=== PATIENT | male | born 1955 | race Caucasian/White ===

== ENCOUNTER 2022-03-02 04:19 | Emergency (ER) | payer OTHER, SELFPAY ==
[2022-03-02] VITALS (26 sets, daily range): BP systolic 121–159; BP diastolic 69–86; PULSE 64–79; RESP 12–23; TEMP 36.3–36.9; O2SAT 94–100
--- NOTE | ~2022-03-02 | XR_ITS ---
EXAMINATION: [id number] DATE: 03/02/2022 06:11 INDICATION: Pain over the left fifth and sixth ribs. TECHNIQUE: A frontal inspiratory view of the chest and 3 views of the left ribs were obtained. COMPARISON: Chest radiograph dated 03/31/2019 FINDINGS: No rib fractures identified. No airspace opacities, pulmonary edema, pleural effusion or pneumothorax . Heart size is normal. Median sternotomy wires and mediastinal surgical clips are seen, likely from prior coronary artery bypass grafting. IMPRESSION: 1. No rib fracture or acute cardiopulmonary disease. Reviewed, dictated and finalized at location A. K SETTER GYPSUM
--- NOTE | 2022-03-02 05:11 | ED.GENADULT ---
HPI - General Adult General Chief complaint: Unspecified <Dre Jackson MD - Last Filed: 03/03/22 05:11> Stated complaint: cracked ribs? <Dre Jackson MD - Last Filed: 03/03/22 05:11> Time Seen by Provider: 03/02/22 04:49 <Dre Jackson MD - Last Filed: 03/03/22 05:11> History of Present Illness HPI narrative: This is a 66-year-old male presenting ED with left chest wall pain. Patient says that he fell onto a bench approximately 3 weeks ago with some bruising underneath his left pack. The bruise has resolved however he rolled over tonight at 2:00 a.m. and felt a popping sensation and is now having a sharp pain at the bottom of his sternum that radiates across his left chest. It is 2/10 in intensity. pain only occurs with movement. It is exquisitely tender to palpation. is not associated with vomiting, diaphoresis, exertion. Patient does not believe this is cardiac in nature. <Dre Jackson MD - Last Filed: 03/03/22 05:11> Related Data Home medications: Home Medications Medication Instructions Recorded Confirmed aspirin 325 mg tablet 325 mg PO DAILY 03/22/19 10/22/21 atorvastatin 80 mg tablet 80 mg PO DAILY 03/22/19 10/22/21 ezetimibe 10 mg tablet (Zetia) 10 mg PO DAILY 03/22/19 10/22/21 cetirizine 10 mg tablet (Zyrtec) 10 mg PO DAILY PRN 10/22/21 10/22/21 metoprolol succinate 50 mg 50 mg PO DAILY 10/22/21 10/22/21 tablet,extended release 24 hr wmjqrevaeamx-vll-iahoy acid-vit 1 tablet PO DAILY 10/22/21 10/22/21 K-lycop 400 mcg-20 mcg-370 mcg tablet (One-A-Day Men's 50 Plus) <Dre Jackson MD - Last Filed: 03/03/22 05:11> Allergies/adverse reactions: Allergies Allergy/AdvReac Type Severity Reaction Status Date / Time meperidine Allergy Unknown Unknown Verified 03/02/22 04:28 Penicillins Allergy Unknown Unknown Verified 03/02/22 04:28 <Dre Jackson MD - Last Filed: 03/03/22 05:11> Review of Systems Review of Systems: CONSTITUTIONAL: Denies night sweats. EYES: No eye pain ENT: Denies rhinorrhea CARDIOVASCULAR: Denies palpitations RESPIRATORY: Denies hemoptysis GASTROINTESTINAL: Denies hematemesis GENITOURINARY: Denies hematuria. SKIN: Denies rash MUSCULOSKELETAL: Denies myalgia. NEUROLOGIC: Denies weakness. PSYCHIATRIC: Denies delusions <Dre Jackson MD - Last Filed: 03/03/22 05:11> [facility] Past Medical History Medical History: Medical History Borderline hyperlipidemia CAD (coronary artery disease) Type 2 diabetes mellitus <Dre Jackson MD - Last Filed: 03/03/22 05:11> Surgical History Surgical History: Surgical History H/O cataract removal with insertion of prosthetic lens H/O heart bypass surgery History of tonsillectomy and adenoidectomy [place] teeth removed <Dre Jackson MD - Last Filed: 03/03/22 05:11> Family History Family History: Family History Father Family history of coronary artery disease <Dre Jackson MD - Last Filed: 03/03/22 05:11> Social History Social History: Social History Smoking status: Never smoker Second hand tobacco smoke exposure: No Alcohol intake: current Alcohol use details: rarely. Substance use: never Substance use type: does not use Gender identity (if verbalized by the patient): Male <Dre Jackson MD - Last Filed: 03/03/22 05:11> Exam Narrative: APPEARANCE: No apparent distress. Head: atraumatic. EYES: EOMI, NOSE: Atraumatic NECK: Trachea midline RESPIRATORY: No increased rate of breathing , clear lungs CARDIOVASCULAR: RRR, no peripheral edema ABDOMINAL: Non-distended , soft, nontender no guarding rebound MUSCULOSKELETAl: patient has well-healed sternotomy scars over his chest. Patient has reproducible tenderness to pa
--- NOTE | 2022-03-02 05:24 | ECG_ITS ---
Measurements Intervals [place] Rate: 69 P: 60 PA: 183 QRS: 11 QRSD: 110 T: 90 QT: 373 QTc: 401 Interpretive Statements SINUS RHYTHM NONSPECIFIC ST & T-WAVE ABNORMALITY- HIGH LATERAL LEADS BASELINE ARTIFACT- I, III, AVL BORDERLINE ECG NO PREVIOUS ECG AVAILABLE FOR COMPARISON Electronically Signed On 03-02-2022 6:26:55 BINDERY MACHINE SETTER/SET UP OPERATOR by Dustin Hernandez D.O.
[2022-03-02 06:17] LABS: Basophils Absolute Auto 0.1 K/mm3 (0.0-0.1); Basophils Percent Auto 0.8 % (0.2-1.2); Eosinophils Absolute Auto 0.3 K/mm3 (0-0.3); Eosinophils Percent Auto 4.5 % (0-4.4); Hematocrit 49.4 % (42.0-52.0); Hemoglobin 15.6 g/dL (14.0-18.0); Immature Granulocyte Absolute 0.03 K/mm3 (0.00-0.031); Immature Granulocyte Percent A 0.4 % (0-0.5); Lymphocytes Absolute Auto 1.95 K/mm3 (0.9-3.2); Mean Corpuscular HGB Conc 31.6 g/dl (32-36); Mean Corpuscular Hemoglobin 30.1 pg (26-34); Mean Corpuscular Volume 95.4 fl (80-100); Mean Platelet Volume 11.2 fl (7.4-10.4); Monocytes Absolute Auto 0.7 K/mm3 (0.1-0.6); Monocytes Percent Auto 8.9 % (2.6-8.5); Neutrophils Absolute Auto 4.4 K/mm3 (1.3-6.7); Neutrophils Percent Auto 59.4 % (45.5-73.1); Platelet Count Result 184 k/mm3 (150-375); Red Blood Count 5.18 M/mm3 (4.6-6.20); White Blood Count 7.5 K/mm3 (4.5-10.0)
[2022-03-02 06:26] LABS: Magnesium 2.1 mg/dL (1.6-2.3)
[2022-03-02 06:27] LABS: Anion Gap 16 mmol/L (8-16); Blood Urea Nitrogen 15 mg/dL (9-20); Calcium 9.8 mg/dL (8.4-10.2); Carbon Dioxide 29 mmol/L (22-30); Chloride 99 mmol/L (98-107); Estimated Glomerular Filt Rate > 60; Glucose 131 mg/dL (65-110); Potassium 3.8 mmol/L (3.4-5.0); Sodium 144 mmol/L (137-145)
[2022-03-02 06:39] LABS: Troponin I < 0.012 ng/mL (0.000-0.034)
[2022-03-02 10:08] LABS: Troponin I < 0.012 ng/mL (0.000-0.034)
== END 2022-03-02 10:36 | disposition home or self-care (01) ==
PROVIDERS: Emergency Provider Emergency Medicine; PCP Family Medicine
DX: R07.89 Other chest pain (principal); I25.10 Atherosclerotic heart disease of native coronary artery without angina pectoris; E11.9 Type 2 diabetes mellitus without complications; Z98.49 Cataract extraction status, unspecified eye; Z96.1 Presence of intraocular lens; Z95.1 Presence of aortocoronary bypass graft; Z79.82 Long term (current) use of aspirin; Z79.84 Long term (current) use of oral hypoglycemic drugs
CPT/HCPCS: 36415; 71101; 80048; 83735; 84484; 85025; 85610; 85730; 93005; 99284

== ENCOUNTER 2022-10-07 00:01 | Observation (INO) | payer OTHER, SELFPAY ==
[2022-10-06 23:37] VITALS: BP 146/102; PULSE 77; RESP 16; TEMP 36.4; O2SAT 100
[2022-10-06 23:55] LABS: Basophils Absolute Auto 0.1 K/mm3 (0.0-0.1); Basophils Percent Auto 0.6 % (0.2-1.2); Eosinophils Absolute Auto 0.4 K/mm3 (0-0.3); Eosinophils Percent Auto 3.4 % (0-4.4); Hemoglobin 14.6 g/dL (14.0-18.0); Immature Granulocyte Absolute 0.04 K/mm3 (0.00-0.031); Immature Granulocyte Percent A 0.4 % (0-0.5); Lymphocytes Absolute Auto 2.93 K/mm3 (0.9-3.2); Lymphocytes Percent Auto 28.2 % (18.3-44.2); Mean Corpuscular HGB Conc 31.7 g/dl (32-36); Mean Corpuscular Hemoglobin 29.7 pg (26-34); Mean Corpuscular Volume 93.5 fl (80-100); Mean Platelet Volume 10.9 fl (7.4-10.4); Monocytes Absolute Auto 0.9 K/mm3 (0.1-0.6); Monocytes Percent Auto 8.5 % (2.6-8.5); Neutrophils Absolute Auto 6.1 K/mm3 (1.3-6.7); Neutrophils Percent Auto 58.9 % (45.5-73.1); Platelet Count Result 171 k/mm3 (150-375); Red Blood Count 4.92 M/mm3 (4.6-6.20); Red Cell Distribution Width 14.3 % (11.5-14.5); White Blood Count 10.4 K/mm3 (4.5-10.0)
--- NOTE | ~2022-10-07 | US_ITS ---
EXAMINATION: US right upper quadrant DATE: 10/07/2022 INDICATION: Vomiting. TECHNIQUE: Multiple grayscale and Doppler ultrasound images of the abdomen were obtained. COMPARISON: CT abdomen and pelvis 10/07/2022 FINDINGS: The visualized portions of the head and body of the pancreas are normal. There is diffuse h epatic steatosis. The gallbladder is distended. The CT demonstrates a gallstone. Gallbladder wall thi ckening is noted. There is no sonographic [place] sign. The common duct is normal and measures 6 mm. IMPRESSION: 1. Acute cholecystitis. Reviewed, dictated and finalized at location A. IMPRESSION: 1. Acute cholecystitis.
--- NOTE | ~2022-10-07 | MR_ITS ---
EXAMINATION: MR MRCP wo/w con/w 3D wo ind DATE: 10/07/22 INDICATION: Abdominal pain. Nausea. TECHNIQUE: Magnetic resonance imaging (MRI) of the abdomen was performed without intravenous contrast . The patient terminated the exam after very few sequences before contrast was administered. Maximum intensity projection 3-D reconstructions of the volumetric data were created by the technologist. COMPARISON: CT abdomen and pelvis 10/07/2022 FINDINGS: ABDOMEN MRI: The gallbladder is distended. Gallbladder wall thickening is noted. There is trace perih epatic ascites. ABDOMEN MRCP: The common duct measures 7 mm. There are small filling defects in the distal common dana e duct. IMPRESSION: 1. Choledocholithiasis. 2. Gallbladder distention and gallbladder wall thickening suspicious for acute cholecystitis. Reviewed, dictated and finalized at location A.
--- NOTE | ~2022-10-07 | CT_ITS ---
EXAMINATION: CT abdomen pelvis w con INDICATION: Generalized abdominal pain TECHNIQUE: Computed tomographic images of the abdomen and pelvis were obtained after the administrati on of 100 cc of Omnipaque 350 intravenous contrast. The dose-length product (DLP) was 569 mGy-cm. Aut omated exposure control and iterative reconstruction technique were employed. COMPARISON: 08/06/2014 FINDINGS: The lung bases are clear. The heart size is normal. There is an 8 mm cyst in the liver dome . There is mild intrahepatic and extrahepatic biliary dilatation continuing to the level of a stone i n the common bile duct or cystic duct (Mirizzi syndrome). There is mild gallbladder distention. The s pleen, pancreas, and adrenal glands are normal. Cysts of the kidneys measure up to 9 mm on the left. There is calcified atherosclerosis of the aorta and many of the other arteries. No pathologically enl arged abdominal or pelvic lymph nodes are identified. No free intraperitoneal gas or evidence of raciel l obstruction. There is mild lumbar spondylosis. IMPRESSION: 1. 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 Reviewed, dictated and finalized at location A.
[2022-10-07 00:05] LABS: Alanine Aminotransferase 44 U/L (6-50); Albumin Level 4.6 g/dL (3.5-5.1); Alkaline Phosphatase 63 U/L (38-126); Anion Gap 8 mmol/L (8-16); Aspartate Amino Transferase 31 U/L (17-59); Bilirubin,Total 0.4 mg/dL (0.2-1.3); Blood Urea Nitrogen 21 mg/dL (9-20); Carbon Dioxide 29 mmol/L (22-30); Chloride 102 mmol/L (98-107); Estimated CRCL calculation 69 ml/min; Estimated Glomerular Filt Rate > 60; Glucose 167 mg/dL (65-110); Lipase 248 U/L (23-300); Sodium 139 mmol/L (137-145)
--- NOTE | 2022-10-07 11:50 | HP_ITS ---
CHIEF COMPLAINT Epigastric pain and vomiting. HISTORY OF PRESENT ILLNESS DICTATION ENDS HERE MTDD
[2022-10-07 12:11] LABS: Glucose Point of Care 96 mg/dl (65-105)
[2022-10-07 16:52] LABS: Glucose Point of Care 171 mg/dl (65-105)
--- NOTE | 2022-10-07 22:19 | PC.NURSE ---
Paper documentation exists on this patient due to [employer] downtime on 10/07/22 from 0030to [2200] .
--- NOTE | 2022-10-07 22:21 | PC.NURSE ---
Paper documentation exists on this patient due to [employer] downtime on 10/07/22 from 0030 to [2200] .
[2022-10-07 22:55] VITALS: BP 124/65; PULSE 73; RESP 16; TEMP 36.4; O2SAT 94
--- NOTE | 2022-10-08 01:29 | CONS_ITS ---
DATE OF CONSULTATION: 10/07/2022 HISTORY OF PRESENT ILLNESS: This is a 66-year-old white male patient, I am asked to see because of abnormal CT scan. The patient in usual state of health until last evening. He developed some bloating along with nausea, vomiting. [place] as though he may be constipated. He states pain was rather intense across the upper abdomen bilaterally radiating to the back. For this reason, he went to the emergency room. In the emergency room, a CT scan was performed, which suggested mild intrahepatic dilatation. The possibility of a stone in either the cystic or common bile duct is described. The patient states pain is now relieved. He is passing flatus without difficulty. He feels much improved. He never did have a bowel movement, however. Laboratory testing in emergency room reveals liver function tests to be normal. CBC is also unremarkable. PHYSICAL EXAMINATION: GENERAL: The patient is alert, afebrile, anicteric. HEENT: Exam unremarkable. LUNGS: Clear to auscultation and to percussion. HEART: Without murmur or extra sounds. ABDOMEN: Bowel sounds are present. Soft, nontender, with no hepatosplenomegaly. LABORATORY DATA: Laboratory testing reveals CBC and liver tests to be normal. IMPRESSION: 1. Abnormal CT scan, raising the question of gallstones contributing to his problem. Plan for MRCP. Also, an ultrasound of the gallbladder will be obtained. In the morning liver tests and CBC will be repeated. We will follow him during this course of observation. We will give him a laxative because of concerns over constipation as well. Thank you very much. LATOYA AHUMADA M.D. COMPUTER DRAFTER COMPUTER DRAFTER D I MT: [place]
[2022-10-08 05:00] VITALS: BMI 25.4
[2022-10-08] MEDS: SODIUM CHLORIDE 0.9% IV 1,000 ML 150 ML IV CONT (05:13)
[2022-10-08 05:23] LABS: Hematocrit 43.3 % (42.0-52.0); Hemoglobin 13.8 g/dL (14.0-18.0); Mean Corpuscular HGB Conc 31.9 g/dl (32-36); Mean Corpuscular Hemoglobin 29.6 pg (26-34); Mean Corpuscular Volume 92.7 fl (80-100); Mean Platelet Volume 10.6 fl (7.4-10.4); Platelet Count Result 152 k/mm3 (150-375); Red Blood Count 4.67 M/mm3 (4.6-6.20); Red Cell Distribution Width 14.5 % (11.5-14.5); White Blood Count 7.9 K/mm3 (4.5-10.0)
[2022-10-08 05:33] LABS: Alanine Aminotransferase 40 U/L (6-50); Albumin Level 3.9 g/dL (3.5-5.1); Alkaline Phosphatase 62 U/L (38-126); Anion Gap 6 mmol/L (8-16); Aspartate Amino Transferase 29 U/L (17-59); Bilirubin,Total 0.7 mg/dL (0.2-1.3); Blood Urea Nitrogen 13 mg/dL (9-20); Calcium 8.7 mg/dL (8.4-10.2); Carbon Dioxide 30 mmol/L (22-30); Chloride 104 mmol/L (98-107); Estimated Glomerular Filt Rate > 60; Glucose 127 mg/dL (65-110); Potassium 3.8 mmol/L (3.4-5.0); Sodium 140 mmol/L (137-145)
[2022-10-08 06:00] VITALS: BP 122/70; PULSE 72; RESP 16; TEMP 36.1; O2SAT 92
[2022-10-08 08:30] VITALS: BP 123/67; PULSE 69; O2SAT 93
[2022-10-08 08:31] VITALS: PULSE 69
[2022-10-08] MEDS: METOPROLOL SUCCINATE EXT REL 50 MG TABCR PO (08:31)
[2022-10-08] MEDS: ATORVASTATIN 40 MG TABLET 80 MG PO (08:31)
[2022-10-08] MEDS: EZETIMIBE 10 MG TABLET PO (08:31)
--- NOTE | 2022-10-08 09:13 | WPDGIPROGNO ---
Progress Note: A&P Assessment and Plan (1) Cholelithiasis: Code(s): K80.20 - Calculus of gallbladder without cholecystitis without obstruction Status: Acute Assessment and Plan: Patient with gallstones identified by ultrasound. CT scan imaging suggest he may have had this impacted in the cystic duct on presentation. LFTs of remain normal. Patient now is asymptomatic. Plan for surgery consultation to arrange cholecystectomy. Further recommendations per surgical service. Cholangiogram should be performed time of cholecystectomy to ensure clearance of the common bile duct despite having normal LFTs. Subjective Date/time seen: 10/08/22 09:13 Interval history: patient alert comfortable this morning. Tolerating liquid diet. Denies any abdominal pain. Passing flatus but no bowel movement yet. Patient admitted with upper abdominal pain that abated after emesis. Initial CT scan suggested possible gallstone. LFTs of remain normal patient unable to tolerate MRCP because of confinement. Ultrasound does confirm gallstone in the gallbladder with apparent cholecystitis. Patient currently feels fine and with no no pain. Review of Systems Review of Systems: Review of systems noncontributory. Exam Narrative: Physical exam reveals patient to be alert. Vital signs stable. HEENT exam is unremarkable. Patient is anicteric. Lungs are clear to auscultation and percussion. Heart is without murmur or extra sounds. Abdomen bowel sounds are present soft nontender with no organomegaly. Objective Data Vital Signs Vital Signs: Vital Signs - 24 hr 10/07/22 22:55 10/07/22 20:00 10/08/22 06:00 Temperature 97.5 F L 97.0 F L Pulse Rate 73 72 Respiratory Rate 16 16 Blood Pressure 124/65 122/70 Pulse Oximetry 94 92 Oxygen Delivery Room Air 10/08/22 08:30 10/08/22 08:31 Temperature Pulse Rate 69 69 Respiratory Rate Blood Pressure 123/67 Pulse Oximetry 93 Oxygen Delivery Intake/Output Intake/Output: Intake & Output 10/05/22 10/06/22 10/07/22 10/08/22 23:59 23:59 23:59 23:59 Intake Total 960 Balance 960 Meds/Results Medications: Active Medications Generic Name Dose Route Start Last Admin Trade Name Freq PRN Reason Stop Dose Admin Aspirin 81 mg 10/08/22 08:00 Aspirin 81 Mg Chewable Tablet PO DAILY@0800 [facility] Atorvastatin Calcium 80 mg 10/08/22 09:00 10/08/22 08:31 Atorvastatin 40 Mg Tablet PO 80 mg DAILY RAJESH Administration Dextrose 12.5 gm 10/08/22 02:32 Dextrose 50% 25 Gm/50 Ml Syringe IV PUSH PRN PRN Hypoglycemia Protocol Ezetimibe 10 mg 10/08/22 09:00 10/08/22 08:31 Ezetimibe 10 Mg Tablet PO 10 mg QAM RAJESH Administration Glimepiride 8 mg 10/08/22 08:00 Glimepiride 2 Mg Tablet PO DAILY@0800 RAJESH Glucagon 1 mg 10/08/22 02:32 Glucagon For Inj 1 Mg Vial IM PRN PRN Hypoglycemia Protocol Glucose 15 gm 10/08/22 02:32 Glucose Oral Gel 15 Gm Of Glucse In 37.5 Gm Tube PO PRN PRN Hypoglycemia Protocol Sodium Chloride 1,000 mls @ 75 mls/hr 10/08/22 02:30 10/08/22 08:31 Normal Saline Iv IV CONT 75 mls/hr .[id number] RAJESH Infusion Dextrose 1,000 mls @ 100 mls/hr 10/08/22 02:32 Dextrose 5% 1,000 Ml IVPB PRN PRN Hypoglycemia Protocol Levofloxacin/Dextrose 750 mg in 150 mls @ 100 mls/hr 10/08/22 09:00 Levaquin 750 Mg/D5w 150 Ml IVPB Q24H RAJESH Metronidazole 500 mg in 100 mls @ 100 mls/hr 10/08/22 11:00 Flagyl 500 Mg/Iso Soln 100 Ml IVPB Q8H RAJESH Metformin HCl 1,000 mg 10/08/22 08:00 Metformin Hcl 500 Mg Tablet PO BIDWM RAJESH Metoprolol Succinate 50 mg 10/08/22 09:00 10/08/22 08:31 Metoprolol Succinate Ext Rel 50 Mg Tabcr PO 50 mg QAM RAJESH Administration Morphine Sulfate 4 mg 10/08/22 02:30 Morphine Sulfate (*Crx) 4 Mg/Ml Inj IV PUSH Q4H PRN Pain Rated 7-10 Multivitamin
[2022-10-08] MEDS: levoFLOXacin 750 MG/D5W 150 ML 750 MG/150 ML BAG 100 MG IVPB (10:14)
--- NOTE | 2022-10-08 10:49 | PM.IMPN ---
Progress Note: A&P Assessment and Plan (1) Acute calculous cholecystitis: Code(s): K80.00 - Calculus of gallbladder with acute cholecystitis without obstruction Status: Acute Assessment and Plan: Patient presented with c/o epigastric pain, N/V. CT abd/pelvis concerning for intrahepatic and extrahepatic biliary dilation, gallbladder distention and possible common bile duct or cystic duct stone. GI consulted MRCP and RUQ US show acute cholecystitis. MRCP with small filling defects to distal common bile duct. Levaquin 750 mg IV Q24 hours and Metronidazole 500 mg IV Q8 hours initiated. General surgery consulted for surgical eval Continue analgesics and antiemetics as needed. LFTs within normal limits. WBC 7.9 (2) Type 2 diabetes mellitus with cardiac complication: Code(s): E11.59 - Type 2 diabetes mellitus with other circulatory complications Status: Chronic Assessment and Plan: Chronic. Patient takes metformin and glimepiride at home. Hold oral diabetes medications while inpatient. Accu-check AC/HS with low dose aspart sliding scale and hypoglycemia protocol. Check A1c. (3) Hypertension: Code(s): I10 - Essential (primary) hypertension Status: Chronic Assessment and Plan: Chronic. Monitor vitals per routine. Continue metoprolol at home dose. (4) CAD (coronary artery disease): Code(s): I25.10 - Atherosclerotic heart disease of [place] coronary artery without angina pectoris Status: Chronic Assessment and Plan: s/p 3 vessel CABG 3-4 years ago. Patient also reports h/o 2-3 cardiac stents. Hold aspirin for possible surgery Continue atorvastatin, Zetia and metoprolol at home doses. Plan CODE STATUS: FULL CODE Discharge disposition: patient is from home and independent Time Spent With Patient Time with patient: 15 - 25 minutes Subjective Date/time seen: 10/08/22 10:49 Interval history: He denies abd pain, nausea or emesis currently. He had a large BM today. No fevers overnight. He reports his IV is burning and itching at this time. Review of Systems Review of Systems: All systems reviewed & are unremarkable except as noted in HPI and below Exam Narrative: General: No acute distress. Well-developed adult male sitting up in bed. Non-toxic appearing. Neuro/Psych: Awake, alert and oriented x4. Clear speech. No focal sensory or motor deficits. Neutral mood. Flat affect. Cooperative. Skin: fair, warm, dry and intact. Mild xerosis left hand/wrist at IV site. Fair turgor. HEENT: Normocephalic. Sclera is non-icteric. Pupils equal and round. Oral mucosa pink and moist. Neck: No JVD. Heart: S1 and S2 regular rate and rhythm. No murmurs, gallops, or rubs auscultated. Chest: Respirations even and unlabored. Lung sounds are clear to auscultation without wheezes, rhonchi, or rales. Abdomen: Soft, mildly distended and non-tender to palpation. Bowel sounds present in all 4 quadrants. No guarding. Extremities: No edema, erythema or calf tenderness. Grossly normal ROM. radial and dorsalis pedis pulses equal and palpable bilaterally. Objective Data Vital Signs Vital Signs: Vital Signs - 24 hr 10/07/22 22:55 10/07/22 20:00 10/08/22 06:00 Temperature 97.5 F L 97.0 F L Pulse Rate 73 72 Respiratory Rate 16 16 Blood Pressure 124/65 122/70 Pulse Oximetry 94 92 Oxygen Delivery Room Air 10/08/22 08:30 10/08/22 08:31 10/08/22 08:30 Temperature Pulse Rate 69 69 Respiratory Rate Blood Pressure 123/67 Pulse Oximetry 93 Oxygen Delivery Room Air Intake/Output Intake/Output: Intake & Output 10/05/22 10/06/22 10/07/22 10/08/22 23:59 23:59 23:59 23:59 Intake Total 960 Balance 960 Meds/Results Medications: Active Medications Generic Name Dose Route Start Last Admin Trade Name Freq PRN Reason Stop Dose Admin Aspirin 81 mg 10/08/22 08:00 Aspirin 81 Mg Chewable Tablet
[2022-10-08 12:19] LABS: Glucose Point of Care 167 mg/dl (65-105)
--- NOTE | 2022-10-08 12:23 | PM.DS ---
DS: Admitting Diagnosis Discharge Date 10/08/2022 Admitting Diagnosis Cholelithiasis Possible choledocholithiasis Epigastric pain Type 2 diabetes mellitus, chronic CAD, chronic DS: Discharge Diagnosis Discharge Diagnosis (1) Acute calculous cholecystitis: Code(s): K80.00 - Calculus of gallbladder with acute cholecystitis without obstruction Status: Acute Assessment and Plan: Patient presented with c/o epigastric pain, N/V. CT abd/pelvis concerning for intrahepatic and extrahepatic biliary dilation, gallbladder distention and possible common bile duct or cystic duct stone. GI consulted MRCP and RUQ US show acute cholecystitis. MRCP with small filling defects to distal common bile duct. Levaquin 750 mg IV Q24 hours and Metronidazole 500 mg IV Q8 hours initiated 10/08. Discussed with General Surgery and transitioned to ciprofloxacin 500 mg PO BID until Friday 10/13. General surgery consulted for surgical eval - plan for outpatient Lap cholecystectomy with cholangiogram on Wednesday10/13/22 Continue analgesics and antiemetics as needed. LFTs within normal limits. WBC 7.9 (2) Type 2 diabetes mellitus with cardiac complication: Code(s): E11.59 - Type 2 diabetes mellitus with other circulatory complications Status: Chronic Assessment and Plan: Chronic. Patient takes metformin and glimepiride at home. Hold oral diabetes medications while inpatient. Accu-check AC/HS with low dose aspart sliding scale and hypoglycemia protocol. Stable (3) Hypertension: Code(s): I10 - Essential (primary) hypertension Status: Chronic Assessment and Plan: Chronic. Monitored vitals per routine. Continued metoprolol at home dose. Stable. (4) CAD (coronary artery disease): Code(s): I25.10 - Atherosclerotic heart disease of [place] coronary artery without angina pectoris Status: Chronic Assessment and Plan: s/p 3 vessel CABG 3-4 years ago. Patient also reports h/o 2-3 cardiac stents. Held aspirin for possible surgery. Instructed to continuing holding until after surgery Wednesday. Continued atorvastatin, Zetia and metoprolol at home doses. DS: Summary Hospital Course Reason for hospitalization: Epigastric pain & vomiting Hospital Course: Patient is a 66 yo male, with non-insulin dependent type 2 diabetes mellitus and CAD s/p CABG 3 vessels 3-4 years ago, who presented to the ED for evaluation of epigastric pain that was sharp and radiated across his right abdomen and associated with nausea and vomiting x4. Symptoms started at approximately 1900 the day prior to admission and following dinner of ribs and baked beans. He reported concerns for constipation since Wednesday, as well, along with bloating that started that evening. In the ED, his vitals were stable. Lab work showed normal LFTs and mildly elevated WBC 11.5. CT abd/pelvis was concerning for intrahepatic and extrahepatic biliary dilation, gallbladder distention and possible common bile duct or cystic duct stone. GI was consulted. The patient was treated with IV morphine, IV zofran and IV NS 1 liter in the ED. He was admitted for further management and evaluation. MRCP and RUQ abd US were obtained and suggested acute cholecystitis with gallstones and small filling defect to distal common bile duct. Levaquin 750 mg IV Q24 hours and Metronidazole 500 mg IV Q8 hours were initiated 10/08/22. General Surgery was consulted for evaluation of lap cholecystectomy with cholangiogram with imaging findings. ERCP was discussed with the patient, however, he had no further abd pain, nausea, emesis, leukocytosis, elevated LFTs or jaundice. He reported feeling comfortable with discharge and outpatient Laparoscopic Cholecystectomy with cholangiogram on Wednesday10/13/22. Risks of worsening disease and s/s to report were discussed with the patient who verbalized understanding. He reported understanding that ERCP may still b
--- NOTE | 2022-10-08 12:46 | PM.CNGS ---
Assessment and Plan Assessment and plan (1) Acute calculous cholecystitis: Code(s): K80.00 - Calculus of gallbladder with acute cholecystitis without obstruction Status: Acute Assessment and Plan: Patient's pain has been gone for nearly 48 hours. He is tolerating full liquid diet without difficulty. His abdominal exam is negative. I discussed with the patient and his that I would definitely recommend cholecystectomy. I described that procedure in detail including the risks benefits and usual length of recovery. I also discussed that we would be doing an intraoperative cholangiogram as it is unclear from the imaging whether there may be small stones in the bile duct. All questions were answered. We will go ahead and discharge the patient today and he can follow up again as an outpatient Wednesday to proceed with laparoscopic cholecystectomy at 7:30 a.m. in the morning. (2) Abnormal findings on imaging of biliary tract: Code(s): R93.2 - Abnormal findings on diagnostic imaging of liver and biliary tract Status: Acute Assessment and Plan: Small stones in the bile duct on MRCP but normal liver enzymes, nondilated bile ducts on ultrasound. Conflicting imaging and chemistries. Will get intraoperative cholangiogram at time of laparoscopic cholecystectomy. (3) CAD (coronary artery disease): Qualifiers: Coronary Disease-Associated Artery/Lesion type: [place] artery [place] vs. transplanted heart: [place] heart Associated angina: without angina Qualified Code(s): I25.10 - Atherosclerotic heart disease of [place] coronary artery without angina pectoris Code(s): I25.10 - Atherosclerotic heart disease of [place] coronary artery without angina pectoris Status: Chronic Assessment and Plan: Patient has had coronary artery bypass grafting and does not experience chest pain or coronary symptoms at this point. (4) Type 2 diabetes mellitus with cardiac complication: Code(s): E11.59 - Type 2 diabetes mellitus with other circulatory complications Status: Chronic (5) Primary hypertension: Code(s): I10 - Essential (primary) hypertension Status: Chronic History of Present Illness Consult details Consult date: 10/08/22 Reason for consult: abdominal pain Requesting physician: Demetrius Peña MD Narrative: Patient is a 66-year-old diabetic man who has a history of coronary artery bypass grafting a few years ago. On Wednesday, 2 days ago, he developed severe epigastric abdominal pain that radiated around to the back under each rib margin. He also had quite a few episodes of vomiting. He had eaten a corn beef sandwich around 2:00 p.m. and then had barbecued ribs for supper. His pain started about 7:00 p.m.. He came to the emergency room where he was noted to have epigastric tenderness. He reports that he vomited in the triage area and soon after that his pain greatly improved. CT scan of the abdomen and pelvis showed evidence of cholecystitis and also some intrahepatic and extrahepatic biliary ductal dilatation thought to be either due to bile duct stones or Mirizzi syndrome. His liver enzymes were normal. He had an ultrasound and an MRCP today. The ultrasound showed gallstones but no biliary ductal dilatation. His MRCP showed small stones in the bile duct and gallbladder wall thickening suggestive of cholecystitis. Liver enzymes have been normal again today. With the somewhat conflicting biliary imaging, Dr. Peña saw the patient and would prefer to hold off on ERCP at this time since the imaging is conflicting and liver enzymes are normal. We were asked to see the patient in consultation. If cholecystectomy is to be performed, patient will need intraoperative cholangiogram as well. At present, patient is eating lunch and has not had any abdominal pain since when he was in the emergency room. He has not had any further episodes of vomiting and would like to be dischar
[2022-10-08 12:58] LABS: Basophils Absolute Auto 0.1 K/mm3 (0.0-0.1); Basophils Percent Auto 0.4 % (0.2-1.2); Eosinophils Absolute Auto 0.1 K/mm3 (0-0.3); Eosinophils Percent Auto 1.2 % (0-4.4); Hematocrit 44.8 % (42.0-52.0); Hemoglobin 14.7 g/dL (14.0-18.0); Immature Granulocyte Absolute 0.03 K/mm3 (0.00-0.031); Immature Granulocyte Percent A 0.3 % (0-0.5); Lymphocytes Absolute Auto 1.62 K/mm3 (0.9-3.2); Lymphocytes Percent Auto 13.7 % (18.3-44.2); Mean Corpuscular HGB Conc 32.8 g/dl (32-36); Mean Corpuscular Volume 91.4 fl (80-100); Monocytes Absolute Auto 0.7 K/mm3 (0.1-0.6); Monocytes Percent Auto 5.7 % (2.6-8.5); Neutrophils Absolute Auto 9.3 K/mm3 (1.3-6.7); Neutrophils Percent Auto 78.7 % (45.5-73.1); Platelet Count Result 161 k/mm3 (150-375); Red Cell Distribution Width 14.1 % (11.5-14.5); White Blood Count 11.8 K/mm3 (4.5-10.0)
--- NOTE | 2022-10-08 17:49 | ER_ITS ---
This report was moved to the correct visit on 10/14/2022. Original report was signed by Brice Chávez MD on 10/09/22 0707 and co-signed by Camelia Buckley PA-C on 10/09/22 0909. 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 Pt states he ate [place] for lunch then developed abdominal pain a afew hours later. States he then ate ribs for dinner which cauesd the abdominal pain to worsen. He develop nausea with multiple episodes of emesis, then came to the ED. His last BM was 3 days ago, described as explosive diarrhea. States he normally has 1-2 BM per day. Denies obstipation, hematemesis, coffee ground emesis, fever, body aches, chills, urinary complaints, CP or SOB. No history of abdominal surgeries. Related Data Home Medications Medication Instructions Recorded Confirmed atorvastatin 80 mg tablet 80 mg PO DAILY 03/22/19 10/07/22 ezetimibe 10 mg tablet (Zetia) 10 mg PO DAILY 03/22/19 10/07/22 metoprolol succinate 50 mg 50 mg PO DAILY 10/22/21 10/07/22 tablet,extended release 24 hr fxlaevmvoenw-joq-ytaya acid-vit 1 tablet PO DAILY 10/22/21 10/07/22 K-lycop 400 mcg-20 mcg-370 mcg tablet (One-A-Day Men's 50 Plus (with vitamin K)) aspirin 81 mg tablet 81 mg PO DAILY 10/07/22 10/07/22 metformin 500 mg tablet,extended 1,000 mg PO BID 10/07/22 10/07/22 release 24 hr Allergies Allergy/AdvReac Type Severity Reaction Status Date / Time meperidine Allergy Unknown Unknown Verified 05/13/22 14:36 Penicillins Allergy Unknown Unknown Verified 05/13/22 14:36 Review of Systems Review of Systems: CONSTITUTIONAL: Denies fever, chills EYES: Denies visual changes, redness, or discharge. ENT: Denies rhinorrhea, congestion, sore throat, or otalgia. CARDIOVASCULAR: Denies chest pain, palpitations, or edema. RESPIRATORY: Denies cough or dyspnea. GASTROINTESTINAL: See HPI GENITOURINARY: Denies dysuria or hematuria. SKIN: Denies rash or itching. MUSCULOSKELETAL: See HPI NEUROLOGIC: Denies headache, numbness, dizziness, or weakness. PSYCHIATRIC: Denies anxiety or depression. [facility] Past Medical History Medical History Borderline hyperlipidemia CAD (coronary artery disease) Type 2 diabetes mellitus Surgical History Surgical History H/O cataract removal with insertion of prosthetic lens H/O heart bypass surgery History of tonsillectomy and adenoidectomy [place] teeth removed Family History Family History Father Family history of coronary artery disease Social History Social History Smoking status: Never smoker Second hand tobacco smoke exposure: No Alcohol intake: current Alcohol use details: rarely. Substance use: never Substance use type: does not use Lack of Transportation: No Lack of Food: Never True Current Housing: I Have Housing Concerned About Future Housing: Decline to Answer Difficulty Paying Gas/Electric Bills: Decline to Answer Difficulty Paying for Meds: Decline to Answer Currently Unemployed: Decline to Answer Education: Decline to Answer Difficulty w/ Childcare or Family Care: Decline to Answer Living arrangements: with family Gender identity (if verba
[2022-10-09 01:18] LABS: Appearance Urine Clear (Clear); Bilirubin Urine Negative (Negative); Blood Urine Negative (Negative); Color Urine Yellow (Yellow); Glucose Urine UA 3+ mg/dL (Negative); Ketones Urine 1+ mg/dL (Negative); Leukocyte Esterase Ur Negative LEU/UL (Negative); Nitrate Urine Negative (Negative); Protein Urine Negative (Negative); Urobilinogen Urine 0.2 mg/dL (<2.0); pH Urine 6.5 (5.0-9.0)
[2022-10-09 01:21] LABS: Add Urine Microscopic? NO
[2022-10-09 12:22] LABS: Anion Gap 8 mmol/L (8-16); Aspartate Amino Transferase 31 U/L (17-59); Bilirubin,Total 0.4 mg/dL (0.2-1.3); Blood Urea Nitrogen 20 mg/dL (9-20); Calcium 9.1 mg/dL (8.4-10.2); Carbon Dioxide 28 mmol/L (22-30); Chloride 103 mmol/L (98-107); Estimated CRCL calculation 85 ml/min; Estimated Glomerular Filt Rate > 60; Glucose 152 mg/dL (65-110); Potassium 3.8 mmol/L (3.4-5.0); Sodium 139 mmol/L (137-145)
[2022-10-09 12:23] LABS: Alanine Aminotransferase 46 U/L (6-50); Albumin Level 4.6 g/dL (3.5-5.1); Alkaline Phosphatase 67 U/L (38-126); Lipase 167 U/L (23-300); Total Protein 7.6 g/dL (6.3-8.2)
[2022-10-12 10:58] LABS: Glucose Point of Care 111 mg/dl (65-105)
== END 2022-10-08 13:35 | disposition home or self-care (01) ==
LOC: ANHED 19:36 → ANH2MED 10-08 10:18
PROVIDERS: Emergency Medicine; Admitting Provider Student in an Organized Health Care Education/Training Program; Emergency Provider Physician Assistant; PCP Family Medicine; Visit Provider Internal Medicine Gastroenterology
DX: K80.00 Calculus of gallbladder with acute cholecystitis without obstruction (principal); E11.59 Type 2 diabetes mellitus with other circulatory complications; I10 Essential (primary) hypertension; I25.10 Atherosclerotic heart disease of native coronary artery without angina pectoris; Z95.5 Presence of coronary angioplasty implant and graft; Z20.822 Contact with and (suspected) exposure to COVID-19; I48.0 Paroxysmal atrial fibrillation; R93.2 Abnormal findings on diagnostic imaging of liver and biliary tract; D72.829 Elevated white blood cell count, unspecified; F10.90 Alcohol use, unspecified, uncomplicated; Z79.1 Long term (current) use of non-steroidal anti-inflammatories (NSAID); Z79.82 Long term (current) use of aspirin; Z79.84 Long term (current) use of oral hypoglycemic drugs; Z79.899 Other long term (current) drug therapy; Z82.49 Family history of ischemic heart disease and other diseases of the circulatory system
CPT/HCPCS: 36415; 74177; 74183; 76376; 76705; 80053; 81003; 82948; 83690; 85025; 85027; 96361; 96374; 96375; 99285; A9270; G0378; J1200; J1956; J2270; J2405; J7030; Q9967

== ENCOUNTER 2022-10-12 11:17 | Outpatient (CLI) | payer OTHER, SELFPAY ==
[2022-10-12 12:11] LABS: Alanine Aminotransferase 35 U/L (6-50); Albumin Level 4.2 g/dL (3.5-5.1); Alkaline Phosphatase 78 U/L (38-126); Amylase 58 U/L (30-110); Aspartate Amino Transferase 30 U/L (17-59); Bilirubin,Total 1.2 mg/dL (0.2-1.3); Lipase 86 U/L (23-300)
== END 2022-10-12 11:18 | disposition home or self-care (01) ==
LOC: ANHSURGERY 11:22
PROVIDERS: PCP Family Medicine; Visit Provider Surgery
DX: K80.00 Calculus of gallbladder with acute cholecystitis without obstruction (principal); Z01.818 Encounter for other preprocedural examination
CPT/HCPCS: 36415; 80076; 82150; 83690; 86850; 86900; 86901

== ENCOUNTER 2022-10-13 00:48 | Day surgery (SDC) | payer OTHER, SELFPAY ==
--- NOTE | 2022-10-09 13:23 | PC.NURSE ---
Report to the Outpatient Waiting Room, entrance under the green pavilion located off [facility], at time _0830 on date _10/13/22 . Planned Procedure Time: __1030 . Time changes happen often and if your time is changed the preop area will call you the afternoon before. - You and your visitor will be asked to self-screen and do not enter if you have any COVID symptoms. - A mask is optional within the hospital at this time. Patients may have clear liquids (water, carbonated beverages, clear teas, apple juice) until 3 hours prior to surgery with a maximum of 20 ounces. - No food from midnight until time of surgery - Infants may have breast milk until 4 hours before surgery, infant formula 6 hours prior to surgery. - Children will be allowed to drink immediately following surgery. If applicable, please bring a bottle or sippy cup to assist with drinking. Juice, water, soda, and popsicles are readily available. For infants on formula, please bring formula the day of surgery. Pacifiers are allowed. Take the following medications with a SIP of water the morning of surgery: __METOPROLOL,CIPRO DO NOT STOP ANY OF YOUR OTHER PRESCRIPTION MEDICATIONS PRIOR TO SURGERY ?EXCEPT THE FOLLOWING Medications to discontinue per physician ___PT STATES HOLD ASPIRIN PER DR NDIAYE .LAST DOSE_10/06/22. ALL VITAMINS 3 DAYS PRE OP.LAST DOSE 10/09/22 HIBICLENS SHOWER MORNING OF SURGERY Please no make-up, nail jordanian, hairspray, perfume, deodorant, or body powder the day of surgery. No jewelry (including any body piercings) or valuables the day of surgery, leave them at home. Please take a shower or bath the night before, or the morning of, surgery with an antibacterial soap. Wear comfortable, loose fitting clothing. Children are encouraged to wear pajamas. - Jewelry must be removed prior to entering the operating room. Rings and piercings that are not removed may be cut off. - The hospital will not accept responsibility for valuables. - Please leave all valuables, including medications, at home the day of surgery. If you are going home after surgery, a licensed route sales delivery driver must drive you home. - NO public transportation without another adult if you receive anesthesia. - We recommend that an adult stay with you for 24 hours following discharge. - We also recommend that you do not drive, make important decision, drink alcoholic beverages, or take any drugs that were not prescribed by your health care provider for at least 24 hours after your discharge time. For Pediatric surgeries, we recommend two adults accompany the child home. Follow any additional instructions given to you from your surgeon. If you or anyone in your household have experienced Covid symptoms in the past week, please notify your surgeon or the nurse liaison at the phone number below for possible testing. Telephone instructions given to ___PT'S REANNA and asked if any additional questions and then verbalized understanding. Patient advised to call surgeon office or pre surgery nurse liaison [phone] if any additional questions.
[2022-10-09 13:33] VITALS: BMI 25.8
--- NOTE | 2022-10-12 13:02 | WPDANESEPPF ---
Anes - Initial Pre Proc Eval Procedure: Operation Date: 10/13/22 10:30 Proposed Procedures p Laparoscopic Cholecystectomy with Intra Operative Cholangiogram - Andrew Linder MD Date/Time: 10/12/22 13:02 Surgeon: Andrew Linder MD Pre Op Diagnosis: cholecystitis Patient Data Age: 66 Gender: M Height: 1.8 m Weight: 83.99 kg Allergies Allergy/AdvReac Type Severity Reaction Status Date / Time meperidine Allergy Unknown Unknown Verified 10/13/22 08:31 Penicillins Allergy Unknown Unknown Verified 10/13/22 08:31 Home Medications Medication Instructions Recorded Confirmed Type atorvastatin 80 mg tablet 80 mg PO DAILY 03/22/19 10/09/22 History ezetimibe 10 mg tablet (Zetia) 10 mg PO DAILY 03/22/19 10/09/22 History metoprolol succinate 50 mg 50 mg PO DAILY 10/22/21 10/09/22 History tablet,extended release 24 hr llmtjfqurqmx-rtj-cysnn acid-vit 1 tablet PO DAILY 10/22/21 10/09/22 History K-lycop 400 mcg-20 mcg-370 mcg tablet (One-A-Day Men's 50 Plus (with vitamin K)) aspirin 81 mg tablet 81 mg PO DAILY 10/07/22 10/09/22 History metformin 500 mg tablet,extended 1,000 mg PO BID 10/07/22 10/09/22 History release 24 hr ciprofloxacin HCl 500 mg tablet 500 mg PO Q12H #8 tabs 10/08/22 10/09/22 Rx empagliflozin 25 mg tablet 25 mg PO DAILY 10/09/22 10/09/22 History (Jardiance) glimepiride 4 mg tablet 8 mg PO QAM 10/09/22 10/09/22 History Patient hx anesthesia problems: none Family hx anesthesia problems: none Results Review: All pre-operative results and documents have been reviewed as part of the pre-operative evaluation. [facility] Past Medical History Medical History (Updated 10/12/22 @ 13:03 by José Lewis DO) Atrial fibrillation Borderline hyperlipidemia CAD (coronary artery disease) History of heart attack Type 2 diabetes mellitus Surgical History Surgical History (Updated 10/12/22 @ 13:03 by José Lewis DO) H/O cataract removal with insertion of prosthetic lens H/O heart bypass surgery x4 or 5, 2019 History of tonsillectomy and adenoidectomy Hx of CABG [place] teeth removed Family History Family History Father Family history of coronary artery disease Social History Social History Smoking status: Never smoker Second hand tobacco smoke exposure: No Alcohol intake: current Alcohol use details: rarely. Substance use: never Substance use type: does not use Lack of Transportation: No Lack of Food: Never True Current Housing: I Have Housing Concerned About Future Housing: Decline to Answer Difficulty Paying Gas/Electric Bills: Decline to Answer Difficulty Paying for Meds: Decline to Answer Currently Unemployed: Decline to Answer Education: Decline to Answer Difficulty w/ Childcare or Family Care: Decline to Answer Living arrangements: with family Gender identity (if verbalized by the patient): Male Spiritual care concerns: No Agree to blood products: Yes Anes - Eval Final PreProcedure Day of Procedure 10/12/22 13:02 Patient weight: overweight Heart: regular rate and rhythm Lungs: clear to auscultation Airway: Mallampati scale class II Neurological: alert and oriented Last oral intake: >/= 8 hours ASA classification: III Emergent: no Anesthetic plan: proceed Anesthesia type and monitoring: general ETT and standard monitoring Results Review: All pre-operative results and documents have been reviewed as part of the pre-operative evaluation. Informed Consent: The patient's anesthetic plan and its attendant risks and benefits were discussed with the patient/family/POA. Questions were solicited and answers provided to the satisfaction of the patient/family/POA.
[2022-10-13] VITALS (7 sets, daily range): BP systolic 122–148; BP diastolic 60–81; PULSE 75–93; RESP 10–16; TEMP 36.2–36.3; O2SAT 96–100
--- NOTE | ~2022-10-13 | XR_ITS ---
EXAMINATION: XR cholangiogram surg 1st inj DATE: 10/13/2022 12:13 INDICATION: Intraoperative evaluation during laparoscopic cholecystectomy TECHNIQUE: Multiple fluoroscopic images of the right upper quadrant were obtained during intraoperati ve cholangiography. A total of 187 fluoroscopic images were obtained. The amount of fluoroscopy time used during this procedure was 0.8 minutes. COMPARISON: None. FINDINGS: Cannulation of the cystic duct demonstrates filling of of the common bile duct and central intrahepatic biliary tree. There is medial deviation of the course of the distal common bile duct whi ch appears to result from mass effect from a surgical instrument. There are few small mobile filling defects in the central aspect of the common bile duct on the initial cine image with a single larger lucent filling defect present on the second collection of cine images. These appear to subtly change in size and shape during the course of injection most consistent with injected gas bubbles. Contrast extends into the duodenum. There is some with intraperitoneal spillage of contrast originating at the site of injection. IMPRESSION: Several small lucent likely gas bubbles in the midportion of the common bile duct. No lesion suspicio us for choledocholithiasis identified. Reviewed, dictated and finalized at location A. IMPRESSION: Several small lucent likely gas bubbles in the midportion of the common bile du ct. No lesion suspicious for choledocholithiasis identified.
--- NOTE | 2022-10-13 08:14 | WPDHPUPDATE1 ---
History and Physical Update Update Date/Time: 10/13/22 08:14 History and Physical has been reviewed, including an updated exam of the patient. There are NO changes in the patient's condition. Risks, benefits, and alternatives have been discussed and questions answered. Patient agrees to proceed with procedure.
[2022-10-13 08:53] LABS: Glucose Point of Care 128 mg/dl (65-105)
[2022-10-13] MEDS: ACETAMINOPHEN 500 MG TABLET 1000 MG PO (09:10)
[2022-10-13] MEDS: LACTATED RINGERS 1,000 ML 30 ML IV CONT ×2 (09:10→12:55)
[2022-10-13] MEDS: KETOROLAC 15 MG/ML VIAL (*BKC) IV PUSH (09:12)
[2022-10-13] MEDS: ceFAZolin 2 GM/D5W 50 ML 2 GM/50 ML BAG IVPB (10:49)
[2022-10-13 13:04] LABS: Glucose Point of Care 188 mg/dl (65-105)
--- NOTE | 2022-10-13 13:07 | W.PM.PROC2 ---
Procedure Note - Detailed Date of Procedure 10/13/22 Pre-op Diagnosis Acute cholecystitis with gallstones, abnormal biliary imaging Post-op Diagnosis Other (Suppurative acute cholecystitis with gallstones with cystic duct obstruction, Mirizzi syndrome) Procedure Performed Laparoscopic cholecystectomy with intraoperative cholangiogram Surgeon Andrew Linder MD Roll Tube Setter Meli Barrerawendy DIESEL TRUCK CRANE OPERATOR DIESEL TRUCK CRANE OPERATOR Anesthesia General and Local (0.5% Marcaine with epinephrine) Indications Patient presented to the emergency room 5 days ago with severe epigastric pain and vomiting. He had vomiting in the triage area but then stopped vomiting and his pain actually improved. He was body rolling machine tender in the epigastric area and CT scan showed acute cholecystitis with extrahepatic biliary ductal dilatation thought to either be due to bile duct stones or Mirizzi syndrome. Ultrasound did show gallstones. MRCP showed small stones in the bile duct. Patient had multiple sets of liver function tests all of which were completely normal. Lipase remained normal as well. With the conflicting biliary imaging, patient is taken to surgery now for laparoscopic cholecystectomy with intraoperative cholangiogram. He was feeling better in the hospital tolerating a low-fat diet and was discharged to be returned for surgery a short time after discharge. Findings Patient had severe acute cholecystitis with gallbladder wall thickening as well as edema and hypervascularity. Inside the gallbladder, the contents were entirely purulent. 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 The common hepatic duct and the cystic duct were somewhat attached to each other by the stone and inflammatory process requiring extremely careful dissection to free each of these ducts from 1 another. Intraoperative cholangiogram was negative. There were some air bubbles but these did not really appear to be stones. The surgery was significantly harder than usual taking nearly 3 times as long and very high risk due to the impacted cystic duct stone and the attachment of the cystic duct to the common hepatic duct. An extra 5 mm port had to be placed in the left mid abdomen so that posterior retraction could be placed on the duodenum and the cholecystohepatic triangle exposed adequately. Omental adhesions to the gallbladder continued to ooze blood after they were freed from the gallbladder. The procedure was much more bloody than usual as well. A drain had to be placed following the procedure due to the purulent bile and the continued generalized bloody ooze. This was a very difficult cholecystectomy. Description of Procedure Patient was taken to surgery and induced into general anesthesia. The abdomen is prepped and draped. Trocars were placed in the usual fashion using applied Medical optical trocars and a 5 mm camera. There were numerous omental adhesions to the gallbladder. These were taken down but continued ooze over the surface area of the omentum that had been adherent to the gallbladder. Suction and some cautery were used but there were continued to be a slow ooze from this area. The gallbladder was tensely distended. I decompressed the gallbladder with a laparoscopic aspirator. The bile in the gallbladder appeared to be purulent. Once the gallbladder was decompressed, we were able to take down additional adhesions to the midportion of the gallbladder and to the infundibulum. The gallbladder was able to be retracted somewhat anterosuperiorly but the cholecystohepatic triangle was not able to be exposed adequately. Another 5 mm port was placed in the left mid abdomen. A blunt retractor was placed here and the duodenum and omentum were retracted posteriorly, improving our visualization of the cholecystohepatic triangle. There was severe inflammation and edema of the gallbladder with thickened per
== END 2022-10-13 15:14 | disposition home or self-care (01) ==
PROVIDERS: PCP Family Medicine; Visit Provider Surgery
PROC: 0FT44ZZ Resection of Gallbladder, Percutaneous Endoscopic Approach (ICD-10-PCS; CPT 47562; principal; 2022-10-13 10:30)
DX: K80.00 Calculus of gallbladder with acute cholecystitis without obstruction (principal); I48.91 Unspecified atrial fibrillation; I25.10 Atherosclerotic heart disease of native coronary artery without angina pectoris; I25.2 Old myocardial infarction; E11.9 Type 2 diabetes mellitus without complications; Z95.1 Presence of aortocoronary bypass graft; Z79.84 Long term (current) use of oral hypoglycemic drugs; Z79.82 Long term (current) use of aspirin
CPT/HCPCS: 47563; 36415; 74300; 80076; 82150; 82948; 83690; 86850; 86900; 86901; 88304; A9270; C1713; J0690; J1100; J1170; J1885; J2250; J2405; J2704; J3010; J7120; Q9966

== ENCOUNTER 2023-07-28 00:55 | Day surgery (SDC) | payer OTHER, SELFPAY ==
[2023-07-19 11:05] VITALS: BMI 26.1
--- NOTE | 2023-07-26 12:22 | SUR.PREOP ---
Patient called regarding upcoming procedure. Reviewed preop instructions, appointment times, and procedure prep.
[2023-07-28 06:15] VITALS: BP 116/64; PULSE 84; RESP 16; TEMP 36.1; O2SAT 97; BMI 25.2
[2023-07-28 06:27] LABS: Glucose Point of Care 98 mg/dl (65-105)
[2023-07-28] MEDS: LACTATED RINGERS 1,000 ML 150 ML IV CONT (06:40)
--- NOTE | 2023-07-28 07:24 | PM.HPGS ---
History of Present Illness History of Present Illness Consent: Risks, benefits, and alternatives have been discussed and questions answered. Patient agrees to proceed with procedure. Chief complaint: neoplasm screening Narrative: Demetrius Gonzalez is a 67 year old male here for first screening colonoscopy Review of Systems Review of Systems: All systems reviewed & are unremarkable except as noted in HPI and below PMFSH Past Medical History Medical History (Updated 07/28/23 @ 07:24 by Beni Forrester MD) Atrial fibrillation Borderline hyperlipidemia CAD (coronary artery disease) Colon cancer screening History of heart attack Type 2 diabetes mellitus Surgical History Surgical History H/O cataract removal with insertion of prosthetic lens H/O heart bypass surgery x4 or 5, 2018 History of tonsillectomy and adenoidectomy Hx laparoscopic cholecystectomy 10/13/2022 Hx of CABG [place] teeth removed Family History Family History Father Family history of coronary artery disease Social History Social History Smoking status: Never smoker Second hand tobacco smoke exposure: No Alcohol intake: current Alcohol use details: rarely. Substance use: never Substance use type: does not use Lack of Transportation: No Lack of Food: Never True Current Housing: I Have Housing Concerned About Future Housing: Decline to Answer Difficulty Paying Gas/Electric Bills: Decline to Answer Difficulty Paying for Meds: Decline to Answer Currently Unemployed: Decline to Answer Education: Decline to Answer Difficulty w/ Childcare or Family Care: Decline to Answer Living arrangements: with family Gender identity (if verbalized by the patient): Male Spiritual care concerns: No Agree to blood products: Yes Meds Home Medications and Allergies Home Medications Medication Instructions Recorded Confirmed Type atorvastatin 80 mg tablet 80 mg PO DAILY 03/22/19 07/28/23 History ezetimibe 10 mg tablet (Zetia) 10 mg PO DAILY 03/22/19 07/28/23 History metoprolol succinate 50 mg 50 mg PO DAILY 10/22/21 07/28/23 History tablet,extended release 24 hr jabrkilrlfyt-uag-wdwni acid-vit 1 tablet PO DAILY 10/22/21 07/28/23 History K-lycop 400 mcg-20 mcg-370 mcg tablet (One-A-Day Men's 50 Plus (with vitamin K)) aspirin 325 mg tablet 325 mg PO DAILY #30 tabs 11/17/22 07/28/23 Rx metformin 500 mg tablet,extended See Rx Instructions .Route 12/30/22 07/28/23 Rx release 24 hr .COMPLEX #360 tabs empagliflozin 25 mg tablet 25 mg PO DAILY #30 tabs 01/25/23 07/28/23 Rx (Jardiance) glimepiride 4 mg tablet 8 mg PO QAM #180 tabs 07/08/23 07/28/23 Rx Allergies Allergy/AdvReac Type Severity Reaction Status Date / Time meperidine Allergy Unknown Unknown Verified 07/28/23 06:26 Penicillins Allergy Unknown Unknown Verified 07/28/23 06:26 Vital Signs Vital Signs - 24 hr 07/28/23 06:15 Temperature 96.9 F L Pulse Rate 84 Respiratory Rate 16 Blood Pressure 116/64 Pulse Oximetry 97 Oxygen Delivery Room Air Exam Const: General: comfortable and no acute distress HENMT: Face/Nose/Sinus: Normal nares present Eyes: General: appearance normal, both eyes and all related structures Neck: Neck: no JVD Resp: Auscultation: clear to auscultation bilaterally Cardio: Rate: regular rate Rhythm: regular rhythm GI: Inspection: non-distended GI Palp: Yes Soft to palpation Skin: General skin exam: normal color Neuro: General: gait normal Speech: normal speech Extrem: General: normal to inspection Psych: Mental Status: mental status grossly normal Assessment and Plan Assessment and plan (1) Colon cancer screening: Code(s): Z12.11 - Encounter for screening for malignant neoplasm of colo
--- NOTE | 2023-07-28 07:26 | WPDANESEPPF ---
Anes - Initial Pre Proc Eval Procedure: Operation Date: 07/28/23 07:30 Proposed Procedures p Screening Colonoscopy - Beni Forrester MD Date/Time: 07/28/23 07:26 Surgeon: Beni Forrester MD Pre Op Diagnosis: neoplasm screening Patient Data Age: 67 Gender: M Height: 1.8 m Weight: 82.1 kg Last Vital Signs Temp 96.9 F L 07/28/23 06:15 Pulse 84 07/28/23 06:15 Resp 16 07/28/23 06:15 BP 116/64 07/28/23 06:15 Pulse Ox 97 07/28/23 06:15 O2 Del Method Room Air 07/28/23 06:15 Allergies Allergy/AdvReac Type Severity Reaction Status Date / Time meperidine Allergy Unknown Unknown Verified 07/28/23 06:26 Penicillins Allergy Unknown Unknown Verified 07/28/23 06:26 Home Medications Medication Instructions Recorded Confirmed Type atorvastatin 80 mg tablet 80 mg PO DAILY 03/22/19 07/28/23 History ezetimibe 10 mg tablet (Zetia) 10 mg PO DAILY 03/22/19 07/28/23 History metoprolol succinate 50 mg 50 mg PO DAILY 10/22/21 07/28/23 History tablet,extended release 24 hr tloluhmfjoti-vyw-jseqf acid-vit 1 tablet PO DAILY 10/22/21 07/28/23 History K-lycop 400 mcg-20 mcg-370 mcg tablet (One-A-Day Men's 50 Plus (with vitamin K)) aspirin 325 mg tablet 325 mg PO DAILY #30 tabs 11/17/22 07/28/23 Rx metformin 500 mg tablet,extended See Rx Instructions .Route 12/30/22 07/28/23 Rx release 24 hr .COMPLEX #360 tabs empagliflozin 25 mg tablet 25 mg PO DAILY #30 tabs 01/25/23 07/28/23 Rx (Jardiance) glimepiride 4 mg tablet 8 mg PO QAM #180 tabs 07/08/23 07/28/23 Rx Laboratory Tests 07/28/23 06:19 POC Capillary Glucose 98 mg/dl (65-105) Patient hx anesthesia problems: none Family hx anesthesia problems: none Results Review: All pre-operative results and documents have been reviewed as part of the pre-operative evaluation. [facility] Past Medical History Medical History (Updated 07/28/23 @ 07:24 by Beni Forrester MD) Atrial fibrillation Borderline hyperlipidemia CAD (coronary artery disease) Colon cancer screening History of heart attack Type 2 diabetes mellitus Surgical History Surgical History H/O cataract removal with insertion of prosthetic lens H/O heart bypass surgery x4 or 5, 2019 History of tonsillectomy and adenoidectomy Hx laparoscopic cholecystectomy 10/13/2022 Hx of CABG [place] teeth removed Family History Family History Father Family history of coronary artery disease Social History Social History Smoking status: Never smoker Second hand tobacco smoke exposure: No Alcohol intake: current Alcohol use details: rarely. Substance use: never Substance use type: does not use Lack of Transportation: No Lack of Food: Never True Current Housing: I Have Housing Concerned About Future Housing: Decline to Answer Difficulty Paying Gas/Electric Bills: Decline to Answer Difficulty Paying for Meds: Decline to Answer Currently Unemployed: Decline to Answer Education: Decline to Answer Difficulty w/ Childcare or Family Care: Decline to Answer Living arrangements: with family Gender identity (if verbalized by the patient): Male Spiritual care concerns: No Agree to blood products: Yes Anes - Eval Final PreProcedure Day of Procedure 07/28/23 07:26 Patient weight: normal Heart: regular rate and rhythm Lungs: clear to auscultation Airway: Mallampati scale class II Neurological: alert and oriented Last oral intake: >/= 8 hours ASA classification: III Emergent: no Anesthetic plan: proceed Anesthesia type and monitoring: general GIVS and standard monitoring Results Review: All pre-operative results and documents have been reviewed as part of the pre-operative evaluation. Informed Consent: The
[2023-07-28 07:46] VITALS: BP 84/50; PULSE 69; RESP 16; O2SAT 95
[2023-07-28 07:56] VITALS: BP 98/57; PULSE 70; RESP 17; O2SAT 96
[2023-07-28 08:06] VITALS: BP 113/69; PULSE 73; RESP 16; O2SAT 99
== END 2023-07-28 08:21 | disposition home or self-care (01) ==
PROVIDERS: PCP Family Medicine; Visit Provider Internal Medicine Gastroenterology
PROC: 0DJD8ZZ Inspection of Lower Intestinal Tract, Via Natural or Artificial Opening Endoscopic (ICD-10-PCS; CPT 45378; principal; 2023-07-28 07:30)
DX: Z12.11 Encounter for screening for malignant neoplasm of colon (principal); D12.3 Benign neoplasm of transverse colon; K57.30 Diverticulosis of large intestine without perforation or abscess without bleeding; K64.8 Other hemorrhoids; I48.91 Unspecified atrial fibrillation; I25.10 Atherosclerotic heart disease of native coronary artery without angina pectoris; E11.9 Type 2 diabetes mellitus without complications; I25.2 Old myocardial infarction; Z95.1 Presence of aortocoronary bypass graft; Z79.82 Long term (current) use of aspirin; Z79.84 Long term (current) use of oral hypoglycemic drugs
CPT/HCPCS: 45385; 82948; 88305; J2704; J7120

== ENCOUNTER 2024-02-22 12:20 | Emergency (ER) | payer OTHER, SELFPAY ==
--- NOTE | 2024-02-22 12:33 | ED.SKABFB ---
HPI - Skin/Abscess/Foreign Bdy General Chief complaint: Skin/Abscess/Foreign Body Stated complaint: infection to finger Time Seen by Provider: 02/22/24 12:45 Source: patient and RN notes reviewed Mode of arrival: ambulatory Limitations: dementia History of Present Illness HPI narrative: 68-year-old male presents with concern for redness, swelling, tenderness beneath the nail bed of the 3rd digit of the right hand. He reports it has been getting worse for couple days but feels worse today. He reports he feels like the pain extends up his hand. He denies any other redness, swelling, warmth. He denies any drainage. MD complaint: other (Redness) Related Data Home Medications Medication Instructions Recorded Confirmed atorvastatin 80 mg tablet 80 mg PO DAILY 03/22/19 11/01/23 ezetimibe 10 mg tablet (Zetia) 10 mg PO DAILY 03/22/19 11/01/23 metoprolol succinate 50 mg 50 mg PO DAILY 10/22/21 11/01/23 tablet,extended release 24 hr phtnzfmiigxf-swf-wablt acid-vit 1 tablet PO DAILY 10/22/21 11/01/23 K-lycop 400 mcg-20 mcg-370 mcg tablet (One-A-Day Men's 50 Plus (with vitamin K)) Allergies Allergy/AdvReac Type Severity Reaction Status Date / Time meperidine Allergy Unknown Unknown Verified 02/22/24 12:58 Penicillins Allergy Unknown Unknown Verified 02/22/24 12:58 Review of Systems Review of Systems: CONSTITUTIONAL: Denies malaise, chills, sweats, or fever. EYES: Denies redness, or discharge. ENT: Denies rhinorrhea, congestion, swollen lips, swollen tongue CARDIOVASCULAR: Denies chest pain, palpitations, or edema. RESPIRATORY: Denies cough or dyspnea. GASTROINTESTINAL: Denies abdominal pain, nausea, vomiting SKIN: Reports redness, swelling, tenderness beneath the nail bed of the 3rd digit of the right hand. Denies purulent drainage, vesicles, bullae, numbness, pain beyond proportion MUSCULOSKELETAL: Denies joint pain or myalgia. NEUROLOGIC: Denies headache. All systems reviewed & are unremarkable except as noted in HPI and below PMFSH Past Medical History Medical History Atrial fibrillation Borderline hyperlipidemia CAD (coronary artery disease) Colon cancer screening History of heart attack Type 2 diabetes mellitus Surgical History Surgical History H/O cataract removal with insertion of prosthetic lens H/O heart bypass surgery x4 or 5, 2019 History of tonsillectomy and adenoidectomy Hx laparoscopic cholecystectomy 10/13/2022 Hx of CABG [place] teeth removed Family History Family History Father Family history of coronary artery disease Social History Social History Smoking status: Never smoker Second hand tobacco smoke exposure: No Alcohol intake: current Alcohol use details: rarely. Substance use: never Substance use type: does not use Lack of Transportation: No Lack of Food: Never True Current Housing: I Have Housing Concerned About Future Housing: Decline to Answer Difficulty Paying Gas/Electric Bills: Decline to Answer Difficulty Paying for Meds: Decline to Answer Currently Unemployed: Decline to Answer Education: Decline to Answer Difficulty w/ Childcare or Family Care: Decline to Answer Living arrangements: with family Gender identity (if verbalized by the patient): Male Spiritual care concerns: No Agree to blood products: Yes Comments At time of signature, agree with nursing past medical, surgical, social and family history. There is no relevant family history pertinent to the presenting complaint Exam Narrative: GENERAL: Well-appearing, well-nourished, and in no acute distress. HEAD: Normocephalic, atraumatic. EYES: PERRLA, conjunctivae clear ENT: Mucous membranes moist. NECK: Supple. No lymphadenopathy CHEST: Clear to auscultation. No respiratory distress. HEART: Regular rate and rhythm. SKIN: Warm, dry. Erythema, induration, tenderness, warmth with sharp margins noted beneath the nail bed of the 3rd digit of the right hand with no fluctuation. No vesicles, bullae, necrosis, ecchymosis, crepitus noted. NEURO: Alert and oriented x3. PSYCH: Normal mood and affect Course Course Emergency Course: Patient is aware of diagnosis, understands and agrees to treatment plan. Anticipatory guidance given. Patient agrees to follow-up as directed and is aware of reasons to seek care at the emergency department. Portions of this record may have been created with voice recognition software Level of Care: Express Care Visit Vital Signs Vital signs: Reviewed. MDM - Skin/Abscess/Foreign Bdy MDM Narrative Medical decision making narrative: I evaluated this in the express care. History is obtained from patient who is an independent historian and physical exam was performed.? Available medical records were reviewed. ? Exam findings and relevant testing show no acute concerns or changes; patient is non-toxic appearing and is in no distress. No risk factors or findings concerning for epidural abscess, diskitis, vertebral osteomyelitis, cord compression, cauda equina, vertebral fracture or bone malignancy, AAA, or pyelonephritis. Patient instructed to consider further imaging and workup through their primary care physician as an outpatient if symptoms persist. Does not appear at this time to be erythema multiforme, bullous, SJS, TEN; no evidence at this time to suggest RMSF, NSTI, endocarditis or Lyme disease; patient looks well, nontoxic and is tolerating oral intake; no neurologic signs or symptoms; no headache, photophobia or neck pain; afebrile.? Patient does not have history of of penetrating trauma, laceration, blunt trauma, recent surgery, immunosuppression, malignancy, obesity, alcoholism, corticosteroid use.? Discussed the importance of follow-up, patient agrees; question, cellulitis versus necrotizing soft tissue infection versus abscess.?? Patient is appropriate for outpatient treatment and follow-up. Critical Care Time Critical Care Time Critical Care Time: No Discharge Plan Discharge Clinical Impression: Paronychia Patient Disposition: Home, Self-Care Condition: Stable Instructions: Antibiotic Form, Paronychia (ED) Additional Instructions: Soak your nail: Soak your nail in a mixture of equal parts vinegar and water 3 or 4 times each day. This will help decrease inflammation. Apply a warm compress: Soak a washcloth in warm water and place it on your nail. This will help decrease inflammation. Elevate: Raise your nail above the level of your heart as often as you can. This will help decrease swelling and pain. Prop your nail on pillows or blankets to keep it elevated comfortably. Use lotion: Apply lotion after you wash your hands. This will prevent your skin from becoming too dry. Please follow-up with your primary care doctor in the next 1-2 days. If you cannot follow-up with your primary care doctor please go to the ED for any urgent issues. 2) If you have any worsening of symptoms or any other concerns please go to the ED immediately. 3) Please take medications as prescribed andcontinue taking your home medications as usual. Prescriptions: New sulfamethoxazole-trimethoprim 800-160 mg tablet 1 tablet PO Q12H 7 Days Qty: 14 0RF No Action One-A-Day Men's 50 Plus(vit K) 400-20-370 mcg tablet 1 tablet PO DAILY metoprolol succinate 50 mg tablet extended release 24 hr 50 mg PO DAILY Rx Instructions: hold sbp less than 90 or HR less than 55 aspirin 325 mg tablet 325 mg PO DAILY Qty: 30 0RF metformin 500 mg tablet extended release 24 hr See Rx Instructions .ROUTE .COMPLEX Qty: 360 2RF Dose Instruction: TAKE 4 TABLETS BY MOUTH EVERY EVENING Rx Instructions: TAKE 4 TABLETS BY MOUTH EVERY EVENING atorvastatin 80 mg tablet 80 mg PO DAILY ezetimibe [Zetia] 10 mg tablet 10 mg PO DAILY Jardiance 25 mg tablet 25 mg PO DAILY Qty: 30 6RF glimepiride 4 mg tablet 8 mg PO QAM Qty: 180 1RF Follow-up/Referrals: Mary Mckeon MD [Primary Care Provider] - Time of Disposition: 13:02
[2024-02-22 12:41] VITALS: BP 111/60; PULSE 73; RESP 16; TEMP 36.3; O2SAT 96
== END 2024-02-22 13:11 | disposition home or self-care (01) ==
PROVIDERS: Emergency Provider Nurse Practitioner; PCP Family Medicine
DX: L03.011 Cellulitis of right finger (principal); I48.91 Unspecified atrial fibrillation; I25.10 Atherosclerotic heart disease of native coronary artery without angina pectoris; E11.9 Type 2 diabetes mellitus without complications; I25.2 Old myocardial infarction; Z95.1 Presence of aortocoronary bypass graft
CPT/HCPCS: 99213; G0463